=== PATIENT | female | born 1960 | race Asian ===

== ENCOUNTER 2018-08-23 05:45 | Emergency (ER) ==
[2018-08-23 06:25] VITALS: BP 79/54; TEMP 99.1; BMI 23.8
[2018-08-23] MEDS: SODIUM CHLORIDE 1,000 ML IV STA ×3 (06:31→07:00)
--- NOTE | 2018-08-23 06:36 | ED.PDOC ---
General Stated Complaint: reported abd pain for 3 days with diarrhea Time Seen by Physician: 06:00 Mode of Arrival: Walk-In Information Source: Patient, Family Exam Limitations: No limitations Nursing and Triage Documentation Reviewed and Agree: Yes Does patient meet sepsis criteria?: No System Inflammatory Response Syndrome: Not Applicable <TENNILLE CLINE - Last Filed: 08/23/18 06:57> Stated Complaint: pt repoted being diabetic and off her meds for a long time <ADRYANROBSON Last Filed: 08/23/18 08:52> ED Provider: Dr. ROBSON CENTENO Chief Complaint: Abdominal Pain Sepsis Protocol: For patient's 13 years and over: Temp is 96.8 and below OR 101 and greater Pulse >90 BPM Resp >20/minute Acutely Altered Mental Status Are patient's symptoms suggestive of a new infection, such as: -Pneumonia -Skin, Soft Tissue -Endocarditis -UTI -Bone, Joint Infection -Implantable Device -Acute Abdominal Infection -Wound Infection -Meningitis -Blood Stream Catheter Infection -Unknown GI Complaint Exam - Abdominal Pain Complaint/Exam Onset: Gradual Duration: 3 days Symptoms Are: Still present Timing: Constant Initial Severity: Mild Current Severity: Moderate Location of Pain: LLQ Character: Reports: Dull, Aching Aggravating: Reports: None Alleviating: Reports: None Associated Signs and Symptoms: Reports: Dizziness Surgical Obstruction Risk Factors: Reports: None Related Surgical History: Reports: None Patient Rh Status: Unknown Abdominal Findings: Present: None Differential Diagnoses: Bowel Obstruction, Constipation, Pancreatitis, Ureteral Stone, UTI Quality Indicator For Non-Traumatic Chest Pain/Syncope: EKG Performed <TENNILLE CLINE - Last Filed: 08/23/18 06:57> - Abdominal Pain Complaint/Exam AAA Risk Factors: Reports: None Ectopic Risk Factors: Reports: None Ovarian Torsion Risk Factors: Reports: None Differential Diagnoses: Other (S.L.E.) Quality Indicators for AMI: EKG in 10min. Quality Indicators for Cardiac Chest Pain: EKG in 10min. <ADRYANROBSON Last Filed: 08/23/18 08:52> Review of Systems - Review Of Systems Constitutional: Reports: No symptoms Eyes: Reports: No symptoms Ears, Nose, Mouth, Throat: Reports: No symptoms Respiratory: Reports: No symptoms Cardiac: Reports: No symptoms GI: Reports: Abdominal pain, Diarrhea, Nausea, Poor fluid intake : Reports: No symptoms Musculoskeletal: Reports: No symptoms Skin: Reports: No symptoms Neurological: Reports: No symptoms Endocrine: Reports: No symptoms Hematologic/Lymphatic: Reports: No symptoms All Other Systems: Reviewed and Negative <TENNILLE CLINE Last Filed: 08/23/18 06:57> Past Medical History - Past Medical History Previously Healthy: Yes Endocrine: Reports: Unknown Cardiovascular: Reports: Unknown Respiratory: Reports: Unknown Hematological: Reports: Unknown Gastrointestinal: Reports: Unknown Genitourinary: Reports: Unknown Neuro/Psych: Reports: Unknown Musculoskeletal: Reports: Unknown Cancer: Reports: Unknown Last Menstrual Period: UNKNOWN - Surgical History General Surgical History: Reports: Unknown - Family History Family History: Reports: Unknown - Social History Smoking Status: Current every day smoker, Light tobacco smoker Hx Substance Use: No Alcohol Screening: None - Immunizations Tetanus Shot up to Date: (UNKNOWN) <TENNILLE CLINE Last Filed: 08/23/18 06:57> Physical Exam - Physical Exam Appearance: Ill-appearing Ill-appearing: Moderate Eyes: OLGA, EOMI, Conjunctiva clear ENT: Ears normal, Nose normal, Oropharynx normal Neck: Supple Respiratory: Airway patent, Breath sounds clear, Breath sounds equal, Respirations nonlabored Cardiovascular: RRR, Pulses normal, No rub, No murmur GI/: Soft, No masses, Bowel sounds normal, Tender Musculoskeletal: Normal strength, ROM intact, No edema, No calf tenderness Skin: Warm Neurological: Sensation intact Psychiatric: Affect appropriate, Mood appropriate <TENNILLE CLINE Last Filed: 08/23/18 06:57> Interpretation - EKG Interpretation Time of EKG #1: 06:37 Rate: Normal Rhythm: Sinus Ectopy: None [place]: NL ST Segment: Normal Interpretation: nsr <TENNILLE CLINE Last Filed: 08/23/18 06:57> - Radiology Interpretation Radiology Interpretation By: Radiologist Radiology Results: Positive (obstructive stone) Radiology Interpretation By: Radiologist - Student Services Advisor Rate: Normal Rhythm: Sinus Ectopy: None - EKG Interpretation Rate: Normal Rhythm: Sinus Ectopy: None [place]: NL ST Segment: Normal Rate: Normal Rhythm: Sinus Ectopy: None [place]: NL (no change ) <ROBSON CENTENO - Last Filed: 08/23/18 08:52> Physician Notification - Case Discussed Physician Notified: dr [email or web address] Time of Notification: 07:00 <TENNILLE CLINE - Last Filed: 08/23/18 06:57> - Case Discussed Physician Notified: harika Time of Notification: 08:49 (transfer now ) <ROBSON CENTENO - Last Filed: 08/23/18 08:52> Critical Care Note - Critical Care Note Total Time (mins): 120 <ROBSON CENTENO - Last Filed: 08/23/18 08:52> Course - Course Hematology/Chemistry: 08/23/18 06:25 08/23/18 06:25 <TENNILLE CLINE - Last Filed: 08/23/18 06:57> - Course Hematology/Chemistry: 08/23/18 06:25 08/23/18 06:25 <ROBSON CENTENO - Last Filed: 08/23/18 08:52> - Course Orders, Labs, Meds: Lab Review 08/23/18 08/23/18 08/23/18 06:05 06:25 06:25 WBC 4.64 RBC 4.06 L Hgb 12.5 Hct 37.0 MCV 91.1 MCH 30.8 MCHC 33.8 RDW Coeff of Sami 12.6 Plt Count 118 L Neutrophils % (Manual) 77.0 H Band Neutrophils % 3.0 Lymphocytes % (Manual) 11.0 Monocytes % (Manual) 6.0 Metamyelocytes % 1.0 Myelocytes % 2.0 H Anisocytosis Not present Puncture Site Rrad O2 Saturation 94.0 L ABG pH 7.322 L ABG pCO2 36.3 ABG pO2 75.0 L ABG HCO3 18.8 L ABG Total CO2 20 L ABG Base Excess -7 L Gallo Test +. FiO2 % 21.0 Sodium 131.0 L Potassium 3.42 L Chloride 98.5 Carbon Dioxide 19.0 L Anion Gap 16.92 BUN 25.6 H Creatinine 1.62 H Estimated GFR (MDRD) 33.00 BUN/Creatinine Ratio 15.80 Glucose 396.3 H Lactic Acid Calcium 8.24 L Total Bilirubin 0.93 AST 32.1 ALT 33.1 Alkaline Phosphatase 65.8 Total Creatine Kinase < 20.0 L Troponin I < 0.012 Total Protein 6.35 Albumin 3.43 L Globulin 2.92 Albumin/Globulin Ratio 1.17 Amylase < 30.0 L Lipase 11.7 L Procalcitonin Urine Color Urine Clarity Urine pH Ur Specific [place] Urine Protein Urine Glucose (UA) Urine Ketones Urine Blood Urine Nitrite Urine Bilirubin Urine Urobilinogen Ur Leukocyte Esterase Urine Microscopic WBC Ur Squamous Epith Cells Amorphous Sediment Urine Bacteria Urine Opiates Screen Ur Oxycodone Screen Urine Methadone Screen Ur Propoxyphene Screen Ur Barbiturates Screen U Tricyclic Antidepress Ur Phencyclidine Scrn Ur Amphetamine Screen U Methamphetamines Scrn U Benzodiazepines Scrn Urine Cocaine Screen U Cannabinoids Screen 08/23/18 08/23/18 08/23/18 06:25 06:25 07:40 WBC RBC Hgb Hct MCV MCH MCHC RDW Coeff of Sami Plt Count Neutrophils % (Manual) Band Neutrophils % Lymphocytes % (Manual) Monocytes % (Manual) Metamyelocytes % Myelocytes % Anisocytosis Puncture Site O2 Saturation ABG pH ABG pCO2 ABG pO2 ABG HCO3 ABG Total CO2 ABG Base Excess Gallo Test FiO2 % Sodium Potassium Chloride Carbon Dioxide Anion Gap BUN Creatinine Estimated GFR (MDRD) BUN/Creatinine Ratio Glucose Lactic Acid 4.39 H Calcium Total Bilirubin AST ALT Alkaline Phosphatase Total Creatine Kinase Troponin I Total Protein Albumin Globulin Albumin/Globulin Ratio Amylase Lipase Procalcitonin 82.69 Urine Color Yellow Urine Clarity Cloudy Urine pH 5.0 Ur Specific [place] 1.015 Urine Protein 2+ Urine Glucose (UA) 3+ H Urine Ketones Negative Urine Blood Trace-intact Urine Nitrite Negative Urine Bilirubin Negative Urine Urobilinogen 0.2 Ur Leukocyte Esterase 1+ Urine Microscopic WBC 10-20 Ur Squamous Epith Cells 5-10 Amorphous Sediment 1+ Urine Bacteria 3+ Urine Opiates Screen Ur Oxycodone Screen Urine Methadone Screen Ur Propoxyphene Screen Ur Barbiturates Screen U Tricyclic Antidepress Ur Phencyclidine Scrn Ur Amphetamine Screen U Methamphetamines Scrn U Benzodiazepines Scrn Urine Cocaine Screen U Cannabinoids Screen 08/23/18 07:40 WBC RBC Hgb Hct MCV MCH MCHC RDW Coeff of Sami Plt Count Neutrophils % (Manual) Band Neutrophils % Lymphocytes % (Manual) Monocytes % (Manual) Metamyelocytes % Myelocytes % Anisocytosis Puncture Site O2 Saturation ABG pH ABG pCO2 ABG pO2 ABG HCO3 ABG Total CO2 ABG Base Excess Gallo Test FiO2 % Sodium Potassium Chloride Carbon Dioxide Anion Gap BUN Creatinine Estimated GFR (MDRD) BUN/Creatinine Ratio Glucose Lactic Acid Calcium Total Bilirubin AST ALT Alkaline Phosphatase Total Creatine Kinase Troponin I Total Protein Albumin Globulin Albumin/Globulin Ratio Amylase Lipase Procalcitonin Urine Color Urine Clarity Urine pH Ur Specific [place] Urine Protein Urine Glucose (UA) Urine Ketones Urine Blood Urine Nitrite Urine Bilirubin Urine Urobilinogen Ur Leukocyte Esterase Urine Microscopic WBC Ur Squamous Epith Cells Amorphous Sediment Urine Bacteria Urine Opiates Screen Negative Ur Oxycodone Screen Negative Urine Methadone Screen Negative Ur Propoxyphene Screen Negative Ur Barbiturates Screen Negative U Tricyclic Antidepress Negative Ur Phencyclidine Scrn Negative Ur Amphetamine Screen Negative U Methamphetamines Scrn Negative U Benzodiazepines Scrn Negative Urine Cocaine Screen Negative U Cannabinoids Screen Negative Orders Category Date Time Status ABG DRAW REQUEST Stat CARDIO 08/23/18 06:06 Completed EKG-(ED ONLY) Stat CARDIO 08/23/18 06:05 Completed EKG-(ED ONLY) Stat CARDIO 08/23/18 08:33 Ordered Student Services Advisor [ED SALESPERSON SHOES APPLIED] .ONCE EMERGENCY 08/23/18 06:06 Active ED IV/MEDIPORT/POWERPORT .ONCE EMERGENCY 08/23/18 06:07 Active ED IV/MEDIPORT/POWERPORT .ONCE EMERGENCY 08/23/18 06:31 Active ABG Stat LAB 08/23/18 06:05 Completed AMYLASE Stat LAB 08/23/18 06:25 Completed BLOOD CULTURE (ED ONLY) Stat LAB 08/23/18 06:25 Received CBC W/ AUTO DIFF Stat LAB 08/23/18 06:25 Completed COMPREHENSIVE METABOLIC PANEL Stat LAB 08/23/18 06:25 Completed CREATINE KINASE Stat LAB 08/23/18 06:25 Completed LACTIC ACID Stat LAB 08/23/18 06:25 Completed LIPASE Stat LAB 08/23/18 06:25 Completed MANUAL DIFFERENTIAL Stat LAB 08/23/18 06:25 Completed PROCALCITONIN Stat LAB 08/23/18 06:25 Completed TROPONIN I Stat LAB 08/23/18 06:25 Completed URINALYSIS C & S IF INDICATED Stat LAB 08/23/18 06:05 Uncollected URINE CULTURE Stat LAB 08/23/18 07:40 Received URINE DRUG SCREEN (RAPID FOR ED) [DRUG SCREEN, URINE, LAB 08/23/18 06:06 Uncollected RAPID] Stat 0.9 % Sodium Chloride [Saline Flush] MEDS 08/23/18 06:07 Active 1 syr IVF PRN PRN 0.9 % Sodium Chloride [Saline Flush] MEDS 08/23/18 06:31 Active 1 syr IVF PRN PRN Metronidazole/Sodium Chloride [Flagyl 500 mg/100 ml] MEDS 08/23/18 07:16 Discontinued 100 ml IV .STK-MED Metronidazole/Sodium Chloride [Flagyl 500 mg/100 ml] MEDS 08/23/18 07:13 Ordered 500 mg Premix 100 ml Ns 1 bag IV ONCE Piperacillin Sodium/Tazobactam [Zosyn 3.375 gm] 3.375 MEDS 08/23/18 07:13 Ordered gm 0.9 % Sodium Chloride [Sodium Chloride] 50 ml IV ONCE Sodium Chloride 0.9% [Sodium Chloride] 1,000 ml MEDS 08/23/18 07:00 Active IV 150 mls/hr Sodium Chloride 0.9% [Sodium Chloride] 1,000 ml MEDS 08/23/18 06:07 Discontinued IV BOLUS Sodium Chloride 0.9% [Sodium Chloride] 1,000 ml MEDS 08/23/18 06:[address] ABDOMEN/PELVIS WO CONTRAST Stat RADS 08/23/18 06:[address] HEAD W/O CONTRAST Stat RADS 08/23/18 06:11 Ordered CXR [CHEST, 1V AP ONLY] Stat RADS 08/23/18 06:08 Ordered Medications Generic Name Dose Route Start Last Admin Trade Name Freq PRN Reason Stop Dose Admin Sodium Chloride 1,000 mls @ 150 mls/hr 08/23/18 07:00 08/23/18 07:00 Sodium Chloride IV 08/23/18 13:39 150 mls/hr .[id number] STA Administration Sodium Chloride 1 syr 08/23/18 06:07 Saline Flush IVF PRN PRN To flush IV Sodium Chloride 1 syr 08/23/18 06:31 Saline Flush IVF PRN PRN To flush IV Discontinued Medications Generic Name Dose Route Start Last Admin Trade Name Freq PRN Reason Stop Dose Admin Sodium Chloride 1,000 mls @ 1,000 mls/hr 08/23/18 06:07 08/23/18 06:31 Sodium Chloride IV 08/23/18 07:06 1,000 mls/hr BOLUS STA Administration Sodium Chloride 1,000 mls @ 1,000 mls/hr 08/23/18 06:31 08/23/18 06:38 Sodium Chloride IV 08/23/18 07:30 1,000 mls/hr BOLUS STA Administration Piperacillin Sod/Tazobactam 50 mls @ 50 mls/hr 08/23/18 07:13 08/23/18 07:25 Sod 3.375 gm/ Sodium Chloride IV 08/23/18 08:12 50 mls/hr ONCE STA Administration Metronidazole 500 mg/ Sodium 100 mls @ 100 mls/hr 08/23/18 07:13 08/23/18 08: 06 Chloride IV 08/23/18 08:12 100 mls/hr ONCE STA Administration Vital Signs: Temp Pulse Resp BP Pulse Ox 08/23/18 05:46 99.1 F 103 H 24 79/54 L 99 Departure <TENNILLE CLINE - Last Filed: 08/23/18 06:57> - Departure Time of Disposition: 08:44 Pt referred to PMD for follow-up: Yes IPMP verified?: No Disposition Discussed With: Patient <ROBSON CENTENO - Last Filed: 08/23/18 08:52> - Departure Disposition: TSF SHORT-TRM HOSP Discharge Problem: Abdominal pain, Hydronephrosis with renal and ureteral calculous obstruction Uncontrolled diabetes mellitus Qualifiers: Diabetes mellitus type: other specified (including SEBAS) Glycemic state: with hyperglycemia Qualified Code(s): E13.65 - Other specified diabetes mellitus with hyperglycemia Acute renal failure (ARF) Qualifiers: Acute renal failure type: with other specified pathological lesion Qualified Code(s): N17.8 - Other acute kidney failure UTI (urinary tract infection) Qualifiers: Hematuria presence: without hematuria Instructions: Abdominal Pain (ED) Condition: Good Additional Instructions: Please call your Family Physician as soon as possible to schedule a follow-up appointment.
--- NOTE | 2018-08-23 07:19 | CT ---
EXAM: CT BRAIN HISTORY: Change in mental status TECHNIQUE: CT brain without intravenous contrast. 5-mm axial sections with Reformations. COMPARISON: FINDINGS: Brain is unremarkable without evidence of hemorrhage or large vessel distribution recent ischemic in farction. There is no suggestion of acute hydrocephalus or subdural fluid collection. No mass or ma ss effect. Cranium has no acute finding. The visualized paranasal sinuses are clear. IMPRESSION: No acute intracranial process.
[2018-08-23] MEDS: ZOSYN 3.375 GM 3.375 GM in SODIUM CHLORIDE 50 ML IV STA (07:25)
--- NOTE | 2018-08-23 07:27 | CT ---
EXAM: CT ABDOMEN AND PELVIS HISTORY: Lower abdominal/pelvic/left flank pain for 3 days. TECHNIQUE: CT abdomen and pelvis without intravenous contrast. Images were reconstructed using 5 mm section thickness. Reformations were prepared. COMPARISON: None FINDINGS: There is moderate left hydronephrosis and perinephric fat stranding secondary to a ureteral calculus lodged at the ureteropelvic junction. The calculus measures 3.7 x 5.6 mm axial and 11.3 mm coronal. The ureters are otherwise clear. No intrarenal calculi are seen. Within limits of this unenhanced exam, the kidneys were otherwise unremarkable. Liver and spleen were within normal limits. Gallbladder, pancreas and adrenal glands appear normal. Minimal atherosclerotic disease. The no gastric distension. Normal appendix. Bowel gas pattern is within normal limits. Uterus and urinary bladder appear normal. There is a small amount of pelvic ascites. There is a 9 mm calcification in the posterior right anatomic pelvis adjacent to the rectum which is of indeterminate etiology and clinical significance. Ventral abdominal wall is intact. 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 Transitional vertebral body anatomy at the lumbosacral junction. Degenerative disc and facet disease of the lower spine. There is mild bibasilar atelectasis within the lung bases. No pneumoperitoneum. IMPRESSION: 1. Moderate left hydronephrosis secondary to an upper ureteral calculus. 2. Small amount of pelvic ascites. 3. 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 4. Mild lung base atelectasis.
--- NOTE | 2018-08-23 07:42 | DI ---
EXAM: CHEST FRONTAL VIEW HISTORY: Epigastric pain. COMPARISON: None FINDINGS: Heart size is mildly prominent. No acute infiltrates are seen. No vascular congestion. There is no consolidation, visible pleural fluid or pneumothorax. Bones reveal no acute fracture. No free air is seen under the diaphragms on this upright study. IMPRESSION: 1. No acute process.
[2018-08-23] MEDS: FLAGYL 500 MG/100 ML 500 MG in PREMIX 100 ML NS 1 BAG IV STA (08:06)
[2018-08-23] MEDS: FLAGYL 500 MG/100 ML 100 ML IV ONE (08:06)
== END 2018-08-23 09:40 | disposition short-term general hospital (02) ==
LOC: ED 05:45
DX: R10.9 Unspecified abdominal pain (principal); R19.7 Diarrhea, unspecified; R42 Dizziness and giddiness; R11.0 Nausea; Z72.0 Tobacco use; E13.65 Other specified diabetes mellitus with hyperglycemia; N17.8 Other acute kidney failure; N39.0 Urinary tract infection, site not specified; N13.30 Unspecified hydronephrosis
CPT/HCPCS: 36415; 80053; 80306; 81001; 82150; 82550; 82803; 82962; 83605; 83690; 84145; 84484; 85007; 85025; 87040; 87070; 87086; 87186; 93005; 93010; 96361; 96365; 96367; 99285

== ENCOUNTER 2018-08-23 09:43 | Outpatient (CLI) ==
[2018-08-23 06:25] VITALS: BMI 23.8
== END 2018-08-23 10:05 | disposition short-term general hospital (02) ==
LOC: AMBL 09:43
PROVIDERS: ATTEND Internal Medicine
DX: A41.9 Sepsis, unspecified organism (principal); R65.20 Severe sepsis without septic shock; N19 Unspecified kidney failure; N20.0 Calculus of kidney; E11.9 Type 2 diabetes mellitus without complications; R10.9 Unspecified abdominal pain